=== PATIENT | male | born 1990 | race Caucasian/White ===

== ENCOUNTER 2018-12-21 20:14 | Emergency (ER) | payer MEDICAID ==
[~2018-12-21] VITALS: Ht 180.3 cm; Wt 60.0 kg
[2018-12-21 20:21] VITALS: BP 137/83
== END 2018-12-21 20:47 | disposition left against medical advice (07) ==
LOC: ER 20:14
DX: R04.0 Epistaxis (principal); Z59.0 Homelessness
CPT/HCPCS: 99281

== ENCOUNTER 2019-01-01 04:06 | Inpatient (IN) | payer MEDICAID | END 2019-01-02 12:03 | disposition left against medical advice (07) | LOC: ER 04:06 → ED HOLD 08:22 → SUR 3N 08:46 ==

== ENCOUNTER 2019-01-02 13:10 | Emergency (ER) | payer MEDICAID ==
[~2019-01-02] VITALS: Ht 180.3 cm; Wt 61.0 kg
[~2019-01-02 13:10] MED LIST: NO HOME MEDS
[2019-01-02 13:16] VITALS: BP 112/80
[2019-01-02] MEDS ORDERED: LEVO750T21 PO (13:35)
== END 2019-01-02 13:47 | disposition home or self-care (01) ==
LOC: ER 13:10
DX: J18.9 Pneumonia, unspecified organism (principal); F17.210 Nicotine dependence, cigarettes, uncomplicated
CPT/HCPCS: 99283

== ENCOUNTER 2022-09-16 14:10 | Emergency (ER) | payer MEDICAID ==
[~2022-09-16] VITALS: Ht 177.8 cm; Wt 57.3 kg
[2022-09-16 15:14] LABS: BASOPHILS % (AUTO) 0.2 % (0-1); EOSINOPHILS # (AUTO) 0.2 X10'3 (0-0.9); HEMATOCRIT 40.9 % (42.0-52.0); HEMOGLOBIN 13.7 g/dl (14.0-17.9); LYMPHOCYTES # (AUTO) 1.5 X10'3 (1.1-4.8); LYMPHOCYTES % (AUTO) 7.3 % (21-51); MEAN CORPUSCULAR HEMOGLOBIN 29.6 PG (27.0-31.0); MEAN CORPUSCULAR HGB CONC 33.5 g/dL (33.0-36.5); MEAN CORPUSCULAR VOLUME 88.6 FL (78-98); MEAN PLATELET VOLUME 10.2 FL (7.4-10.4); MONOCYTES % (AUTO) 4.9 % (2-12); NEUTROPHILS # (AUTO) 17.6 X10'3 (1.8-7.7); NEUTROPHILS % (AUTO) 86.6 % (42-75); PLATELET COUNT 222 X10'3 (140-440); RED BLOOD COUNT 4.62 X10'6 (4.70-6.10); RED CELL DISTRIBUTION WIDTH 13.7 % (11.5-14.5); WHITE BLOOD COUNT 20.3 X10'3 (4.5-11.0)
[2022-09-16 15:18] LABS: CLARITY,URINE CLEAR (Clear); COLOR,URINE YELLOW (Yellow); GLUCOSE, URINE NEGATIVE (Neg); KETONES,URINE NEGATIVE (Neg); LEUKOCYTE ESTERASE ,URINE NEGATIVE (Neg); NITRITES, URINE NEGATIVE (Neg); OCCULT BLOOD,URINE NEGATIVE (Neg); PH,URINE 7.5 (4.8-8.0); PROTEIN,URINE 30 mg/dl (Neg); UROBILINOGEN,URINE >=8.0 E.U/dL (0.2-1.0)
[2022-09-16 15:20] LABS: UA COLLECTION TYPE CLN CATCH MIDSTREAM
[2022-09-16 15:27] LABS: BACTERIA,URINE NONE SEEN /HPF (Neg); MUCUS STRANDS NONE SEEN /LPF (Neg); RBC,URINE NONE SEEN /HPF (0-2); SQUAMOUS EPITHELIAL CELL,UR FEW /LPF (FEW); WBC,URINE 0-4 /HPF (0-4)
[2022-09-16 15:29] LABS: ALANINE AMINOTRANSFERASE 24 U/L (12-78); ALBUMIN 2.7 G/DL (3.4-5.0); ALBUMIN/GLOBULIN RATIO 0.6 (1.1-1.5); ALKALINE PHOSPHATASE 133 IU/L (46-116); ANION GAP 5 (8-16); ASPARTATE AMINO TRANSFERASE 19 U/L (10-37); BILIRUBIN,TOTAL 0.4 MG/DL (0.1-1.0); BLOOD UREA NITROGEN 9 MG/DL (7-18); BUN/CREATININE RATIO 8.3 (5.4-32.0); CHLORIDE 103 MMOL/L (99-107); CREATININE 1.08 MG/DL (0.60-1.10); GLUCOSE 135 MG/DL (70-104); POTASSIUM 3.8 MMOL/L (3.5-5.1); SODIUM 140 MMOL/L (135-145); TOTAL CARBON DIOXIDE 31.7 MMOL/L (24-32); TOTAL PROTEIN 6.9 G/DL (6.4-8.2); eGFR 80 ML/MIN
[2022-09-16] MEDS ORDERED: IOHEXOL 12MG/ML oral solution 500 ML BOTTLE PO ONE (16:15)
[2022-09-16] MEDS ORDERED: normal saline 1000ML IV soln IVB ONE (16:30)
[2022-09-16] MEDS ORDERED: HYDROcodone/acetaminophen 5mg/325mg tablet PO ONE (16:30)
[2022-09-16] MEDS ORDERED: ondansetron 4mg rapidly disintigrating tab PO ONE (16:30)
[2022-09-16 16:52] LABS: MAGNESIUM 1.7 MG/DL (1.5-2.4)
[2022-09-16 17:37] VITALS: BP 133/90
[2022-09-16] MEDS ORDERED: DOXYCYCLINE 100MG CAPSULE PO STA (17:48)
[2022-09-16] MEDS ORDERED: DOXY-135 PO (17:52)
== END 2022-09-16 19:06 | disposition home or self-care (01) ==
LOC: ER 14:10
DX: J18.9 Pneumonia, unspecified organism (principal); R07.81 Pleurodynia; R05.9 Cough, unspecified; R42 Dizziness and giddiness; R91.8 Other nonspecific abnormal finding of lung field; Z87.01 Personal history of pneumonia (recurrent); Z79.2 Long term (current) use of antibiotics
CPT/HCPCS: 36415; 71045; 80053; 81001; 83605; 83735; 84145; 85025; 96360; 99284; J7030